=== PATIENT | female | born 1955 | race Caucasian/White ===

== ENCOUNTER 2021-02-02 12:44 | Emergency (ER) | payer MEDICARE, SELFPAY ==
[2021-02-02 13:01] VITALS: BP 183/86; PULSE 85; RESP 22; TEMP 37; O2SAT 100
--- NOTE | 2021-02-02 13:14 | DI.US.S_ITS ---
PROCEDURE: US PERIPH VENOUS LOW EXTREM RT INDICATIONS: PAIN WORSENING FOR 2 WEEKS TECHNIQUE: Real-time imaging, as well as color and pulse Doppler interrogation, were performed of the lower extremity deep veins from the inguinal ligament to the popliteal fossa. COMPARISON: None. FINDINGS: The common femoral, femoral and popliteal veins are normally compressible, and free of intraluminal thrombus. Color and pulse Doppler demonstrate normal phasic intraluminal flow. There is normal augmentation response to distal compression maneuver. There is an anechoic fluid collection seen along the anterior superior knee that measures 7.2 x 5 x 1.3 cm. A 5.3 x 4.4 x 1.4 cm Sterling's cyst is also seen. IMPRESSION: Negative for deep venous thrombosis. Simple appearing fluid collection seen along the anterior superior aspect of the knee. A Sterling's cyst is also seen Dictated by: Zachary Hayes M.D. on 02/02/2021 at 12:52 Approved by: Zachary Hayes M.D. on 02/02/2021 at 12:53
--- NOTE | 2021-02-02 14:11 | ED.EXTPRO ---
HPI - Extremity Problem <Cheikh Augustin PA-C - Last Filed: 02/02/21 15:51> General Chief complaint: Extremity Problem,Nontraumatic Stated complaint: Right leg,pain,swollen around knee, swollen groin Time Seen by Provider: 02/02/21 13:07 Source: patient Mode of arrival: Ambulatory History of Present Illness HPI Narrative: 66-year-old female with a history of arthritis presents to the ED with right-sided knee pain. Patient states that her symptoms started 2 weeks ago with pain on the right west, which then migrated to the right knee. Patient was seen at an urgent care twice, once prescribed antibiotics for a lymph node infection according to the patient, the next time the directed to physical therapy for arthritis. Patient's all a ortho specialist after that, who recommended physical therapy as well. Patient presented to the ED since her pain was too acute to go to PT. patient denies fever, chills, chest pain, shortness of breath, cough, nausea, vomiting, abdominal pain, history of DVTs, lightheadedness, dizziness, syncope. Patient states that her right knee and right thigh have been more swollen than the left. Patient endorses being able to walk, but limited by pain. Patient denies numbness, tingling, weakness. Patient states that the x-rays done by the ortho were negative for fractures, dislocations. Patient denies trauma. Review of Systems <Cheikh Augustin PA-C - Last Filed: 02/02/21 15:51> Constitutional Constitutional: Denies chills, Denies fatigue, Denies fever(s), Denies frequent falls, Denies lethargy and Denies weakness Eyes Eyes: Denies change in vision, Denies eye discharge, Denies irritation and Denies loss of vision ENT Ears, Nose, Mouth, and Throat: Denies change in voice, Denies dizziness, Denies neck pain, Denies sore throat and Denies throat swelling Cardiovascular Cardiovascular: Denies chest pain, Denies irregular heart rhythm, Denies lightheadedness, Denies palpitations, Denies dyspnea, Denies dyspnea on exertion and Denies orthopnea Respiratory Respiratory: Denies cough, Denies dyspnea, Denies dyspnea on exertion and Denies wheezing Gastrointestinal Gastrointestinal: Denies abdominal pain, Denies change in bowel habits, Denies diarrhea, Denies nausea and Denies vomiting Musculoskeletal Musculoskeletal: Denies neck pain and Denies numbness Comments: Right knee swelling and pain Integumentary/Breasts Skin/Breast: Denies pruritus, Denies erythema, Denies rash and Denies wounds Neurologic Neurologic: Denies behavioral changes, Denies confusion, Denies dizziness, Denies frequent falls, Denies loss of vision, Denies numbness and Denies weakness Psychiatric Psychiatric: Denies anxiety, Denies behavioral changes, Denies confusion, Denies depression, Denies homicidal ideation and Denies suicidal ideation Endocrine Endocrine: Denies fatigue, Denies flushing and Denies palpitations Hematologic/Lymphatic Hematologic/Lymphatic: Denies easy bruising Allergic/Immunologic Allergic/Immunologic: Denies urticaria, Denies throat swelling and Denies wheezing Patient History <Cheikh Augustin PA-C - Last Filed: 02/02/21 15:51> Social History Smoking Status: Former smoker Smoking Status: Former smoker Exam <Cheikh Augustin PA-C - Last Filed: 02/02/21 15:51> Initial Vital Signs Initial Vital Signs: Vital Signs Temperature 98.6 F 02/02/21 13:01 Pulse Rate 85 02/02/21 13:01 Respiratory Rate 22 02/02/21 13:01 Blood Pressure 183/86 H 02/02/21 13:01 Pulse Oximetry 100 02/02/21 13:01 Const General: cooperative HENKS Head: normocephalic and atraumatic Ears: external ears normal and TM's normal bilaterally Nose: external nose normal and No nasal discharge Face and sinus: sinuses nontender, face symmetric, no sinus tenderness and No dry mucous membranes Mouth: oral mucosae normal and moist mucous membranes Teeth and gingiva: dentition normal Throat: tonsils normal and uvula midline Eyes General: appearance normal, both eyes and all related structures Eyelids: eyelids normal Conjunctivae: conjunctivae normal Sclera: sclerae normal Pupils: PERRL EOM: EOM intact bilaterally Neck Neck: normal visual inspection, trachea midline, No lymphadenopathy, No midline deformity and No JVD Lymphatic: No lymphedema Chest Chest: normal inspection of the chest Resp Effort & Inspection: normal respiratory effort, able to speak in complete sentences, no respiratory distress and no use of accessory muscles Auscultation: clear to auscultation bilaterally, no rales, no rhonchi and no wheezes Cardio Rate: regular rate Rhythm: regular rhythm Heart Sounds: no click, no gallops, no murmurs and no rubs Pulses: normal peripheral pulses GI Inspection: non-distended Palpation: soft, no hepatosplenomegaly, No guarding, No pulsatile mass and No tender Auscultation: normal bowel sounds Back/Spine/Pelvis Back: No CVA tenderness Cervical Spine: cervical ROM normal and No pain with cervical ROM Thoracic/Lumbar Spine: thoracic and lumbar spine normal to inspection Skin General: no rashes or lesions noted, No jaundice and No petechiae Neuro General: patient alert, patient oriented x3, gait normal and no focal motor deficits Speech: speech normal Extrem General: full ROM, no clubbing, cyanosis or edema, no pedal edema and no calf tenderness Other: Right thigh swelling. Palpable Sterling cyst in the right popliteal region. Neurovascularly intact. No erythema. R Knee tender to palpation. Psych Appearance: well kempt Mental Status: mental status grossly normal Attitude: cooperative Thought Content: normal and suicidality Judgment: judgment good <Jack Saldaña DO - Last Filed: 02/02/21 17:01> Initial Vital Signs Initial Vital Signs: Vital Signs Temperature 98.6 F 02/02/21 13:01 Pulse Rate 85 02/02/21 13:01 Respiratory Rate 22 02/02/21 13:01 Blood Pressure 183/86 H 02/02/21 13:01 Pulse Oximetry 100 02/02/21 13:01 Course <Cheikh Augustin PA-C - Last Filed: 02/02/21 15:51> Course Course Narrative: Pain improved with ketorolac. CT and ultrasound consistent for tricompartmental osteoarthritis, Sterling cyst. no DVT. DC home with ortho referral. Orders Ordered: ED Orders 02/02/21 13:14 US periph venous low extrem rt Stat 02/02/21 14:26 CT LE RT wo con Stat Discontinued Medications Ketorolac Tromethamine (Ketorolac 30 Mg/Ml Vial) 15 mg IV NOW ONE Stop: 02/02/21 14:45 Last Admin: 02/02/21 14:47 Dose: 15 mg Documented by: JOSE Vital Signs Vital signs: Vital Signs - 8 hr 02/02/21 13:01 02/02/21 14:34 02/02/21 14:35 Temperature 98.6 F Pulse Rate 85 80 Respiratory Rate 22 Blood Pressure 183/86 H 139/64 Pulse Oximetry 100 96 96 02/02/21 15:00 02/02/21 15:01 Temperature Pulse Rate 81 80 Respiratory Rate Blood Pressure 155/70 H Pulse Oximetry 97 95 <Jack Saldaña DO - Last Filed: 02/02/21 17:01> Orders Ordered: ED Orders 02/02/21 13:14 US periph venous low extrem rt Stat 02/02/21 14:26 CT LE RT wo con Stat Discontinued Medications Ketorolac Tromethamine (Ketorolac 30 Mg/Ml Vial) 15 mg IV NOW ONE Stop: 02/02/21 14:45 Last Admin: 02/02/21 14:47 Dose: 15 mg Documented by: JOSE Vital Signs Vital signs: Vital Signs - 8 hr 02/02/21 13:01 02/02/21 14:34 02/02/21 14:35 Temperature 98.6 F Pulse Rate 85 80 Respiratory Rate 22 Blood Pressure 183/86 H 139/64 Pulse Oximetry 100 96 96 02/02/21 15:00 02/02/21 15:01 Temperature Pulse Rate 81 80 Respiratory Rate Blood Pressure 155/70 H Pulse Oximetry 97 95 MDM - Extremity (Nontraumatic) <Cheikh Augustin PA-C - Last Filed: 02/02/21 15:51> Imaging Data US - DVT: Radiologist's Impression: PROCEDURE:? US PERIPH VENOUS LOW EXTREM RT ? INDICATIONS:? PAIN WORSENING FOR 2 WEEKS ? TECHNIQUE:? Real-time imaging, as well as color and pulse Doppler interrogation, were performed of the lower extremity deep veins from the inguinal ligament to the popliteal fossa.? ? COMPARISON:? None. ? FINDINGS:? The common femoral, femoral and popliteal veins are normally compressible, and free of intraluminal thrombus.? Color and pulse Doppler demonstrate normal phasic intraluminal flow.? There is normal augmentation response to distal compression maneuver. ? ? There is an anechoic fluid collection seen along the anterior superior knee that measures 7.2 x 5 x 1.3 cm.? A 5.3 x 4.4 x 1.4 cm Sterling's cyst is also seen.? ? ? IMPRESSION:? ? Negative for deep venous thrombosis. ? Simple appearing fluid collection seen along the anterior superior aspect of the knee. ? A Sterling's cyst is also seen ? Dictated by: Zachary Hayes M.D. on 02/02/2021 at 12:52 ? ? Approved by: Zachary Hayes M.D. on 02/02/2021 at 12:53 ? CT RLE: Radiologist's Impression: PROCEDURE:? CT LE RT WO CON ? INDICATIONS:? RLE pain, sterling's cyst ? TECHNIQUE:? Noncontrast 1-1.5 mm axial sections acquired from the mid-patella to the proximal tibia, with coronal and sagittal reformats.? ? COMPARISON:? [facility], , PERIP VENOUS LOW EXTREM RT, 02/02/2021, 13:27. ? FINDINGS:? Image quality:? Excellent.? ? Bones:? There is normal right knee alignment.? No acute fracture or dislocation.? Moderate to severe tricompartmental osteoarthritis is seen most prominent in medial femoral tibial compartment with near complete loss of joint space, extensive subchondral sclerosis and prominent marginal osteophyte formation.? No suspicious intraosseous lesion.? No significant patellar subluxation. ? Soft tissues:? Moderate to large joint effusion is seen, no gross intra-articular loose body.? A prominent popliteal cyst is noted and measures approximately 4.1 x 3.5 x 6 cm in size better evaluated on venous Doppler study of the right lower extremity from the same day.? No abnormal soft tissue calcification is seen.? Distal quadriceps tendon and patellar tendon are grossly intact.? Limited evaluation of cruciate ligaments shows no gross anterior or posterior cruciate ligament rupture. ? ? IMPRESSION:? 1. Moderate to severe tricompartmental osteoarthritis in right knee more prominent in medial femoral tibial compartment.? No acute fracture or dislocation.? No suspicious bony lesion. 2. Moderate to large joint effusion.? No calcified intra-articular loose body.? No abnormal soft tissue calcifications. 3. Prominent popliteal cyst measures approximately 4.1 x 3.5 x 6 cm in size. 4. No evidence of full-thickness ACL or PCL rupture.? Distal quadriceps tendon and patellar tendon are intact.? Dictated by: Henry Macdonald M.D. on 02/02/2021 at 14:26 ? ? Approved by: Henry Macdonald M.D. on 02/02/2021 at 14:41 ? MDM Narrative Medical decision making narrative: 66-year-old female with a history of arthritis presents to the ED with right-sided knee pain. Concern for fractures versus dislocations versus popliteal cyst versus arthritis versus DVT. Will order ultrasound Doppler right lower extremity. Will order CT right lower extremity, given prior x-rays were negative per patient. Will give ketorolac for pain. Likely discharge home with Ortho follow-up. Discharge Plan Departure Patient Disposition: Home Clinical Impression: Acute knee pain Qualifiers: Laterality: right Qualified Code(s): M25.561 - Pain in right knee Instructions: DI for Osteoarthritis Activity Restrictions/Additional Instructions: You are evaluated in the emergency department today for right-sided knee pain. Your ultrasound showed no evidence of a blood clot (DVT), however the ultrasound and the CT scan showed evidence of a popliteal or Sterling cyst. There was no evidence of fractures or dislocations on the CT. You may take ibuprofen 600 mg 3 times a day with food for the pain. Please follow-up with a ortho specialist for further treatment. You may make an appointment with [facility], . Return to the ED if you experience any numbness, tingling, weakness, swelling in your legs. <Jack Saldaña, DO - Last Filed: 02/02/21 17:01> Cosign ED Attending Cosriverature Attestation: Dr Saldaña Co-Sign Statement: I was available for consultation during this patient's emergency department visit. This chart is signed by myself for administrative purposes only. I did not have direct contact with this patient during this visit. They were seen independently by the APC.
--- NOTE | 2021-02-02 14:26 | DI.CT.S_ITS ---
PROCEDURE: CT LE RT WO CON INDICATIONS: RLE pain, pickard's cyst TECHNIQUE: Noncontrast 1-1.5 mm axial sections acquired from the mid-patella to the proximal tibia, with coronal and sagittal reformats. COMPARISON: [facility], , [facility] VENOUS LOW EXTREM RT, 02/02/2021, 13:27. FINDINGS: Image quality: Excellent. Bones: There is normal right knee alignment. No acute fracture or dislocation. Moderate to severe tricompartmental osteoarthritis is seen most prominent in medial femoral tibial compartment with near complete loss of joint space, extensive subchondral sclerosis and prominent marginal osteophyte formation. No suspicious intraosseous lesion. No significant patellar subluxation. Soft tissues: Moderate to large joint effusion is seen, no gross intra-articular loose body. A prominent popliteal cyst is noted and measures approximately 4.1 x 3.5 x 6 cm in size better evaluated on venous Doppler study of the right lower extremity from the same day. No abnormal soft tissue calcification is seen. Distal quadriceps tendon and patellar tendon are grossly intact. Limited evaluation of cruciate ligaments shows no gross anterior or posterior cruciate ligament rupture. IMPRESSION: 1. Moderate to severe tricompartmental osteoarthritis in right knee more prominent in medial femoral tibial compartment. No acute fracture or dislocation. No suspicious bony lesion. 2. Moderate to large joint effusion. No calcified intra-articular loose body. No abnormal soft tissue calcifications. 3. Prominent popliteal cyst measures approximately 4.1 x 3.5 x 6 cm in size. 4. No evidence of full-thickness ACL or PCL rupture. Distal quadriceps tendon and patellar tendon are intact. Dictated by: Henry Macdonald M.D. on 02/02/2021 at 14:26 Approved by: Henry Macdonald M.D. on 02/02/2021 at 14:41
[2021-02-02 14:34] VITALS: O2SAT 96
[2021-02-02 14:35] VITALS: BP 139/64; PULSE 80; O2SAT 96
[2021-02-02] MEDS: KETOROLAC 30 MG/ML VIAL 15 MG IV (14:47)
[2021-02-02 15:00] VITALS: PULSE 81; O2SAT 97
[2021-02-02 15:01] VITALS: BP 155/70; PULSE 80; O2SAT 95
== END 2021-02-02 15:34 | disposition home or self-care (01) ==
PROVIDERS: Emergency Provider Student in an Organized Health Care Education/Training Program
DX: M25.561 Pain in right knee (principal)
CPT/HCPCS: 36415; 73700; 93971; 96374; 99284; J1885

== ENCOUNTER → 2021-04-01 15:56 | Outpatient (CLI) | payer MEDICARE, SELFPAY ==
[2021-04-01 16:49] LABS: Add Manual Diff / Slide Review NO; Basophils Absolute Auto 100 /uL (0-100); Basophils Percent Auto 0.9 % (0-2); Eosinophils Absolute Auto 500 /uL (0-450); Eosinophils Percent Auto 8.1 % (2-4); Hemoglobin 12.5 g/dL (12.0-16.0); Lymphocytes Absolute Auto 1900 /uL (1100-4500); Lymphocytes Percent Auto 29.7 % (25-40); Mean Corpuscular HGB Conc 32.8 % (30-36); Mean Corpuscular Hemoglobin 26.7 PG (26-34); Mean Corpuscular Volume 81.6 fL (80-100); Monocytes Absolute Auto 600 /uL (0-900); Neutrophils Absolute Auto 3300 /uL (1500-7000); Neutrophils Percent Auto 51.3 % (50-75); Platelet Count 279 X10^3/uL (150-400); Red Blood Cell Count 4.66 X10^6/uL (4.0-5.2); Red Cell Distribution Width 14.9 % (11.6-14.8); White Blood Cell Count 6.4 X10^3/uL (4.5-11.0)
[2021-04-01 16:56] LABS: Appearance Urine UA CLEAR; Bilirubin Urine UA NEGATIVE (NEGATIVE); Color Urine UA YELLOW; Glucose Urine UA NEGATIVE (Negative); Ketones Urine UA NEGATIVE (NEGATIVE); Leukocyte Esterase Urine UA NEGATIVE (NEGATIVE); Nitrite Urine UA NEGATIVE (Negative); Occult Blood Urine UA NEGATIVE (Negative); Protein Urine UA NEGATIVE (Negative); Specific Gravity Urine UA <=1.005 (1.000-1.035); Urobilinogen Urine UA 0.2 E.U./dL (0.2)
[2021-04-01 17:11] LABS: pH Urine UA 6.5 (4.5-8.0)
[2021-04-01 17:12] LABS: BUN Creatinine Ratio 22.9 (6-22); Blood Urea Nitrogen 16 mg/dL (7-17); Calcium 9.7 mg/dL (8.4-10.2); Carbon Dioxide 28 mmol/L (22-32); Chloride 105 mmol/L (98-107); Estimated Glomerular Filt Rate > 60.0 mL/min (>60); Glucose 127 mg/dL (80-110); HEMOLYSIS 19 (0-50); Potassium 3.6 mmol/L (3.4-5.1); Sodium 142 mmol/L (137-145)
[2021-04-01 17:14] LABS: Bacteria Urine None Seen; Culture Indicated Urine Cult Not Indicated; RBC Urine None Seen (0-5/HPF); Squamous Epithelial Cell Urine 0-1 /HPF (0-5/HPF); WBC Urine None Seen (0-5/HPF)
[2021-04-01 19:04] LABS: Hemoglobin A1C% w Est Avg Glu 5.2 % (4.0-6.0)
== END ==
PROVIDERS: PCP Internal Medicine; Referring Provider Orthopaedic Surgery; Visit Provider Orthopaedic Surgery
DX: R73.9 Hyperglycemia, unspecified (principal); Z01.818 Encounter for other preprocedural examination; Z01.812 Encounter for preprocedural laboratory examination; N39.0 Urinary tract infection, site not specified
CPT/HCPCS: 36415; 80048; 81001; 83036; 85025; 93005

== ENCOUNTER → 2021-04-15 12:28 | Outpatient (CLI) | payer MEDICARE, SELFPAY ==
--- NOTE | 2021-04-15 | DI.MRI.S_ITS ---
PROCEDURE: MR KNEE RT WO CON INDICATIONS: Unilateral primary osteoarthritis, right knee TECHNIQUE: Noncontrast sagittal PD fast spin echo and T2 fast spin echo with fat saturation, sagittal 3-D FLASH with fat saturation; coronal T1 spin echo and PD fast spin echo with fat saturation, and axial PD fast spin echo with fat saturation through the knee. COMPARISON: [facility], CR, XR KNEE 4+ VIEWS RIGHT, 04/01/2021, 15:30. FINDINGS: Image quality: Excellent. Menisci: Medial extrusion of the medial meniscus is present which demonstrates linear and amorphous high signal intensity within its posterior horn and body, demonstrating inferior articular surface extension and superior articular surface extension, indicating complex tearing. Linear oblique high signal intensity traverses the anterior horn, body, and posterior horn lateral meniscus, demonstrating inferior articular surface extension, indicating oblique tearing. Cruciate ligaments: The anterior and posterior cruciate ligaments appear intact. Medial structures: The medial collateral ligament appears intact. Visualized portions of the pes anserinus tendons appear normal. No abnormal bursal fluid. Lateral structures: The lateral collateral ligament demonstrates mild T2 signal elevation at the femoral origin. The long and short heads of the biceps femoris tendon appear intact. The popliteus tendon appears normal. Iliotibial band appears normal. Anterior structures: The quadriceps and patellar tendons appear intact. Patellar alignment is normal. No femoral trochlear dysplasia or ventral trochlear prominence. No edema in the infrapatellar fat pad. Bones and cartilage: No bone marrow contusions or fractures. Moderate tricompartmental periarticular osteophyte formation. Moderate subchondral degenerative marrow edema within the weight-bearing aspects of the medial femoral condyle and medial tibial plateau. Severe articular cartilage loss diffusely overlies the weight-bearing aspects of the medial femoral condyle and medial tibial plateau. Mild articular cartilage loss diffusely overlies the weight-bearing aspects of the lateral femoral condyle and lateral tibial plateau. Mild articular cartilage loss diffusely overlies the medial and lateral patellar facets. Superimposed moderate to high-grade articular cartilage loss overlies the patellar apex. Joint space: There is a small knee joint effusion and a small Sterling's cyst. Normal appearing synovial plicae are incidentally noted. IMPRESSION: 1. Tricompartmental osteoarthritis with associated articular cartilage loss. 2. Knee joint effusion and Sterling's cyst. 3. Medial and lateral meniscal tearing. 4. Partial thickness lateral collateral ligament tear. Dictated by: Ferdinand Robles M.D. on 04/15/2021 at 14:32 Approved by: Ferdinand Robles M.D. on 04/15/2021 at 16:39
== END ==
PROVIDERS: PCP Internal Medicine; Referring Provider Orthopaedic Surgery; Visit Provider Orthopaedic Surgery
DX: S83.241A Other tear of medial meniscus, current injury, right knee, initial encounter (principal); S83.281A Other tear of lateral meniscus, current injury, right knee, initial encounter; S83.421A Sprain of lateral collateral ligament of right knee, initial encounter; M17.11 Unilateral primary osteoarthritis, right knee; M25.461 Effusion, right knee; M71.21 Synovial cyst of popliteal space [Baker], right knee
CPT/HCPCS: 73721

== ENCOUNTER 2021-09-02 17:49 | Emergency (ER) | payer MEDICARE, SELFPAY ==
[2021-09-02 18:24] VITALS: BP 142/67; PULSE 99; RESP 18; TEMP 37.7; O2SAT 97; BMI 32.9
[2021-09-02 18:52] LABS: COVID19 -Nasal RAPID Negative (Negative)
== END 2021-09-02 19:03 | disposition left against medical advice (07) ==
PROVIDERS: Emergency Provider Emergency Medicine; PCP Nurse Practitioner Family
DX: J02.9 Acute pharyngitis, unspecified (principal); R05.9 Cough, unspecified; Z20.822 Contact with and (suspected) exposure to COVID-19
CPT/HCPCS: 87635; 99281; C9803

== ENCOUNTER → 2022-08-06 10:28 | Outpatient (CLI) | payer MEDICARE, SELFPAY ==
--- NOTE | 2022-08-06 | DI.US.S_ITS ---
PROCEDURE: US [facility] VENOUS LOW EXTREM RT INDICATIONS: Pain in right knee TECHNIQUE: Real-time imaging, as well as color and pulse Doppler interrogation, were performed of the lower extremity deep veins from the inguinal ligament to the popliteal fossa. COMPARISON: [facility], , [facility] VENOUS LOW EXTREM RT, 02/02/2021, 13:27. FINDINGS: The common femoral, femoral and popliteal veins are normally compressible, and free of intraluminal thrombus. Color and pulse Doppler demonstrate normal phasic intraluminal flow. There is normal augmentation response to distal compression maneuver. IMPRESSION: Negative for deep venous thrombosis of the right lower extremity. Dictated by: Aniket Castaneda M.D. on 08/06/2022 at 12:49 Approved by: Aniket Castaneda M.D. on 08/06/2022 at 12:49
== END ==
PROVIDERS: PCP Nurse Practitioner Family; Referring Provider Orthopaedic Surgery; Visit Provider Orthopaedic Surgery
DX: M25.561 Pain in right knee (principal)
CPT/HCPCS: 93971

== ENCOUNTER 2023-03-31 14:15 | Emergency (ER) | payer MEDICARE, SELFPAY ==
[2023-03-31 14:26] VITALS: BP 175/81; PULSE 72; RESP 18; TEMP 37.1; O2SAT 96; BMI 32.8
--- NOTE | 2023-03-31 18:04 | ED.URI ---
HPI - URI/Sore Throat <Faviola Muñoz PA-C - Last Filed: 03/31/23 18:14> General Chief Complaint: Upper Respiratory Symptoms Stated Complaint: dry cough/lymph nodes swollen T-1/ dif. swallowing Time Seen by Provider: 03/31/23 14:38 Source: patient Mode of arrival: Ambulatory History of Present Illness HPI Narrative: Patient is a 68-year-old female who presents with her grandson due to concern for a lump in her right back. This started last night and immediately was quite tender. She thinks it is smaller today. She denies any fever, chills, sore throat, acute cough or other infectious symptoms. She denies any night sweats, chills, unintentional weight loss, nausea or vomiting. She also notes a chronic dry cough x months. She endorses burning in her chest when after she eats dinner and lays down for bed. She tends to eat dinner late around 8 and then go to bed shortly after. She does not drink alcohol, rare coffee. She fell and broke her right wrist earlier this week. She was seen on would be and it was reduced and splinted. She is complaining of pain around her elbow and wear the splint mixed contact with her palm. She is also concerned that her fingers are very swollen and purple today. She is waiting for a call from the orthopedic clinic to schedule follow up. Related Data Allergies Allergy/AdvReac Type Severity Reaction Status Date / Time No Known Drug Allergies Allergy Verified 09/02/21 18:28 Review of Systems <Faviola Muñoz PA-C - Last Filed: 03/31/23 18:14> Review of Systems ROS Unobtainable: All systems reviewed & are unremarkable except as noted in HPI and below Patient History <Faviola Muñoz PA-C - Last Filed: 03/31/23 18:14> Social History Smoking Status: Former smoker Smoking Status: Former smoker alcohol intake frequency: other Substance Use Type: does not use Exam <Faviola Muñoz PA-C - Last Filed: 03/31/23 18:14> Narrative Exam Narrative: GENERAL: 68 year old patient appears stated age. Well-developed patient, in no distress. NEURO: AOx3. HEAD: Atraumatic. Normocephalic. EYES: Pupils equal round and reactive. Extraocular motions intact. No scleral icterus. No injection or drainage. ENT: Nose without bleeding or purulent drainage. Throat without erythema, tonsillar hypertrophy or exudate. Airway patent. NECK: Trachea midline. 2 cm tender node in the right anterior cervical chain. No overlying cellulitis. CARDIOVASCULAR: Regular rate and rhythm without murmurs, gallops, or rubs. RESPIRATORY: Clear to auscultation. Breath sounds equal bilaterally. No wheezes, rales, or rhonchi. EXTREMITIES: Right upper extremity with splint in place with sling, appears poorly positioned. Splint removed. Attempted to reuse existing splint but decision made to make a new splint that would fit her better as current splint is way too bulky with several gapping inches in the back around the elbow and Danny wraps very tight. New splint placed by RN and reassessed after with good capillary refill, fingers are warm sensation is intact. Splint appears better positioned. Patient tolerated well. SKIN: No rash or erythema of visible areas Initial Vital Signs Initial Vital Signs: Vital Signs Temperature 98.8 F 03/31/23 14:26 Pulse Rate 72 03/31/23 14:26 Respiratory Rate 18 03/31/23 14:26 Blood Pressure 175/81 H 03/31/23 14:26 Pulse Oximetry 96 03/31/23 14:26 Oxygen Delivery Method Room Air 03/31/23 14:26 <Jack Saldaña DO - Last Filed: 03/31/23 18:16> Initial Vital Signs Initial Vital Signs: Vital Signs Temperature 98.8 F 03/31/23 14:26 Pulse Rate 72 03/31/23 14:26 Respiratory Rate 18 03/31/23 14:26 Blood Pressure 175/81 H 03/31/23 14:26 Pulse Oximetry 96 03/31/23 14:26 Oxygen Delivery Method Room Air 03/31/23 14:26 Procedures <Faviola Muñoz PA-C - Last Filed: 03/31/23 18:14> Orthopedic Splinting/Casting Injury #1: Side: right Upper Extremity Injury Location: wrist Upper Extremity Immobilizer: sling/shoulder immobilizer and sugar tong splint Post splinting neuro exam: intact Post splinting vascular exam: intact Placed by: Nursing Course <Faviola Muñoz PA-C - Last Filed: 03/31/23 18:14> Vital Signs Vital signs: Vital Signs - 8 hr 03/31/23 14:26 Temperature 98.8 F Pulse Rate 72 Respiratory Rate 18 Blood Pressure 175/81 H Pulse Oximetry 96 Oxygen Delivery Method Room Air <Jack PiotrDO - Last Filed: 03/31/23 18:16> Vital Signs Vital signs: Vital Signs - 8 hr 03/31/23 14:26 Temperature 98.8 F Pulse Rate 72 Respiratory Rate 18 Blood Pressure 175/81 H Pulse Oximetry 96 Oxygen Delivery Method Room Air MDM - URI/Sore Throat <Faviola Muñoz PA-C - Last Filed: 03/31/23 18:14> MDM Narrative Medical decision making narrative: Multiple etiologies for patient's symptoms considered including, but not limited to: Reactive lymphadenopathy related to illness, less likely malignancy, dental infection, neck deep space infection. For dry cough, most likely etiology is GERD, also possibly allergies, asthma respiratory infection. I believe the right lymph node is likely benign and advised watchful waiting. If it does not resolve on its own or she notices other nodes without any illness, I advised reassessment. It is reassuring to me that it appeared in a short amount of time and is tender and movable. She denies any general symptoms such as night sweats, weight loss or overwhelming fatigue. Her history of dry cough and acid reflux at bedtime is suspicious for a cough caused by her GERD. I advised lifestyle modification and a trial of PPI once daily. If, after taking the PPI once daily for at least 1 month, if her cough has not improved, or if she develops other worrisome symptoms such as shortness of breath or difficulty breathing, I would advise she seek re-evaluation. Splint on her right wrist was replaced, neurovascular exam excellent after splint replaced and patient much more comfortable. Advised to follow up with ortho as originally scheduled. Patient's symptoms improved over duration of stay with above-stated therapies. Findings and discharge diagnosis discussed with patient/family followed by verbalization of understanding Return precautions discussed with patient/family whom verbalize understanding of diagnosis and plan Discharge Plan Departure Patient Disposition: Home Clinical Impression: Lymphadenopathy of right cervical region GERD (gastroesophageal reflux disease) Qualifiers: Esophagitis presence: esophagitis presence not specified Qualified Code(s): K21.9 - Gastro-esophageal reflux disease without esophagitis Fracture of wrist Qualifiers: Encounter type: sequela Fracture type: closed Laterality: right Qualified Code(s): S62.101S - Fracture of unspecified carpal bone, right wrist, sequela Instructions: DI for Gastroesophageal Reflux Disease (GERD), How To Perform RICE (Rest, Ice, Compress, Elevate), DI for Lymphadenopathy Activity Restrictions/Additional Instructions: *You have been diagnosed with gastroesophageal reflux disease, for which I advise you to use lifestyle modification and trying [id number] medications such as omeprazole. I suspect your chronic cough is related to acid reflux. You have a swollen lymph node in your right neck. I would suggest watchful waiting. If this lymph node does not resolve over the next 1-2 weeks, follow up with your primary care for re-evaluation. Usually lymph nodes are swollen as a sign that you have an infection that your body's fighting. This can be very normal. You can use Tylenol or ibuprofen for pain and heat or ice for comfort over the area. The splint for your right wrist fracture was refitted while you were in clinic today to give you more support and be less tight. Please elevate your extremity whenever you are able to to decrease the swelling. Follow up with Orthopedics as previously advised. *What to do: *Please continue to take your regular medications as directed. [ ] New medication prescriptions sent to your pharmacy: [ ] [ ] New medication written as a paper prescription [x ] No new medications given *Please follow up with your primary care provider in 2-3 days, call for an appointment. Let them know you were seen in the Emergency Department and that we ask that you be seen in follow up. We will electronically transmit a record of today's note if your PCP is in our system *If you do not have a primary care provider please contact the [facility] Resource line at [phone]. They will ask some questions about your medical history and help get you set up with a doctor in the community. *Return to Emergency Department if you should have any new, worsening or concerning symptoms, such as [fever greater than 101 F, shaking chills, worsening pain, persistent vomiting or other concerning symptoms]. Referrals: Kavya Kamara ARNP [Primary Care Provider] - Stand Alone Forms: Patient Portal/API ED Sign-out <Jack Saldaña DO - Last Filed: 03/31/23 18:16> Cosign ED Attending Cosignature Attestation: Dr Saldaña Co-Sign Statement: I was available for consultation during this patient's emergency department visit. This chart is signed by myself for administrative purposes only. I did not have direct contact with this patient during this visit. They were seen independently by the [facility].
== END 2023-03-31 15:15 | disposition home or self-care (01) ==
PROVIDERS: Emergency Provider Physician Assistant; PCP Nurse Practitioner Family
DX: R59.1 Generalized enlarged lymph nodes (principal); K21.9 Gastro-esophageal reflux disease without esophagitis; S62.101A Fracture of unspecified carpal bone, right wrist, initial encounter for closed fracture; W19.XXXA Unspecified fall, initial encounter
CPT/HCPCS: 99281; 99283